=== PATIENT | female | born 1995 | race African-American/Black ===

== ENCOUNTER 2023-03-01 07:10 | Emergency (ER) | payer MEDICAID, OTHER ==
[~2023-03-01] VITALS: Ht 162.6 cm; Wt 61.0 kg
[2023-03-01] MEDS ORDERED: MORPHINE SULFATE 4 MG/ML CPJ (NOT FOR IM USE) IV STA (07:20)
[2023-03-01 07:22] VITALS: O2SAT 98
[2023-03-01 07:49] LABS: BASOPHILS % 0.3 % (0.0-2.0); EOSINOPHILS % 2.2 % (0.0-5.0); HEMATOCRIT. 35.3 % (36.0-48.0); HEMOGLOBIN. 11.9 g/dL (12.0-16.0); LYMPHOCYTES % 30.8 % (20.0-50.0); MEAN CORPUSCULAR HEMOGLOBIN 30.9 pg (28.0-32.0); MEAN CORPUSCULAR HGB CONC 33.6 g/dL (31.0-37.0); MEAN PLATELET VOLUME 6.4 fl (7.4-10.4); MONOCYTES % 8.1 % (2.0-8.0); NEUTROPHILS % 58.6 % (40.0-76.0); PLATELET 466 x1000/uL (130-400); RED BLOOD CELL COUNT 3.84 mill/uL (4.2-5.4); RED CELL DISTRIBUTION WIDTH 13.3 % (11.6-14.6)
[2023-03-01 07:55] LABS: CHLORIDE 110 mEq/L (98-107); INDEX HEMOLYSI 1 (1-3); INDEX ICTERIC 1 (1-4); INDEX LIPEMIC 1 (1-3); SODIUM 141 mEq/L (136-145)
[2023-03-01 08:04] LABS: ALANINE AMINOTRANSFERASE 18 IU/L (13-61); ALBUMIN 3.5 g/dL (3.4-5.0); ASPARTATE AMINOTRANSFERASE 16 IU/L (15-37); BILIRUBIN TOTAL 0.2 mg/dL (0.1-1.0); CALCIUM 7.9 mg/dL (8.5-10.1); CARBON DIOXIDE 25 mEq/L (21-32); CREATININE 0.8 mg/dL (0.6-1.3); GLUCOSE 203 mg/dL (70-105); NT PRO B-TYPE NATRIURETIC PEP 7 pg/mL (5-125); PROTEIN TOTAL 7.1 g/dL (6.0-8.3); TROPONIN I HIGH SENSITIVITY 4 ng/L (<54); UREA NITROGEN BLOOD 17 mg/dL (7-21)
[2023-03-01 08:36] VITALS: BP 91/51; PULSE 61; RESP 18; TEMP 97.6
[2023-03-01] MEDS ORDERED: TOPUD PO (09:14)
[2023-03-01] MEDS ORDERED: MORPHINE SULFATE 4 MG/ML CPJ (NOT FOR IM USE) IV SCH (10:15)
== END 2023-03-01 11:25 | disposition home or self-care (01) ==
LOC: ER 07:10
DX: R07.89 Other chest pain (principal)
CPT/HCPCS: 99285; 71045; 80053; 83880; 85025; 85379; 84484; 36415; 93005; C1893; J2270

== ENCOUNTER 2024-01-27 16:00 | Emergency (ER) | payer OTHER ==
[~2024-01-27] VITALS: Ht 160 cm; Wt 62.0 kg
[~2024-01-27 16:00] MED LIST: TOPUD PO
[2024-01-27 16:02] VITALS: O2SAT 98
[2024-01-27 16:03] VITALS: BP 138/81; PULSE 78; TEMP 98.1; O2SAT 99
[2024-01-27] MEDS: TETRACAINE 0.5% OPHTH DROPS 4ML BOTHEYE ONE (17:31)
[2024-01-27] MEDS: FLUORESCEIN SODIUM 1MG/STRIP BOTHEYE ONE (17:31)
[2024-01-27] MEDS ORDERED: ERYT1OIN6 EACHEYE (18:55)
[2024-01-27 19:00] VITALS: RESP 17
== END 2024-01-27 19:23 | disposition home or self-care (01) ==
LOC: ER 16:00
DX: H10.32 Unspecified acute conjunctivitis, left eye (principal)
CPT/HCPCS: 99283

== ENCOUNTER 2024-07-01 21:06 | Emergency (ER) | payer OTHER ==
[~2024-07-01] VITALS: Ht 157.5 cm; Wt 66.0 kg
[~2024-07-01 21:06] MED LIST changes: +ERYT1OIN6 EACHEYE
[2024-07-01 21:09] VITALS: PULSE 94; O2SAT 99
[2024-07-01 21:16] VITALS: BP 141/91; RESP 18; TEMP 37; O2SAT 100
[2024-07-01] MEDS ORDERED: AMOX1TAB16 MT (23:22)
== END 2024-07-01 23:36 | disposition home or self-care (01) ==
LOC: ER 21:06
DX: L03.012 Cellulitis of left finger (principal); Z79.899 Other long term (current) drug therapy
CPT/HCPCS: 99283